=== PATIENT | female | born 1975 | race Caucasian/White ===

== ENCOUNTER → 2017-07-10 | Outpatient (REF) | payer BC ==
[2017-07-15 08:06] LABS: APTT 22.8 sec (.); Anticardiolipin Ab, IgA <10 APL (.); DRVTT Screen Seconds 40.4 sec (.)
[2017-07-20 08:14] LABS: HEPTACARBOXYLPORPHYRIN URINE 1 ug/L (0-2); HEXACARBOXYLPORPHYRIN URINE <1 ug/L (0-1); PENTACARBOXYLPORPHYRIN URINE <1 ug/L (0-2); PORPHOBILINOGEN RANDOM URINE 0.4 mg/L (0.0-2.0); PORPHYRIN TOTAL PLASMA <0.1 ug/dL (0.0-1.0); UROPORPHYRIN URINE 1 ug/L (0-20)
== END ==
LOC: M LAB REF 12:35
PROVIDERS: ATTEND Internal Medicine Medical Oncology
DX: D89.0 Polyclonal hypergammaglobulinemia (principal); Z86.718 Personal history of other venous thrombosis and embolism

== ENCOUNTER → 2017-08-30 | Outpatient (REF) | payer BC ==
[2017-08-30 11:30] LABS: IMMUNOGLOBULIN G 981 MG/DL (681-1648); IMMUNOGLOBULIN M 280 MG/DL (40-230); TOTAL PROTEIN 7.5 GM/DL (6.4-8.2)
[2017-08-31 12:26] LABS: ALBUMIN 4.35 GM/DL (3.29-5.55); GAMMA GLOBULIN % 15.1 % (11.1-18.8)
== END ==
LOC: M LAB REF 10:42
PROVIDERS: ATTEND Internal Medicine Medical Oncology
DX: D89.0 Polyclonal hypergammaglobulinemia (principal)

== ENCOUNTER → 2017-10-09 | Outpatient (REF) | payer BC ==
[2017-10-09 14:07] LABS: FREE T4 1.04 NG/DL (0.76-1.46); RHEUMATOID FACTOR QUANT < 10.0 IU/ML (0-15.0)
[2017-10-10 14:14] LABS: ANTI CENTROMERE ANTIBODY <0.2 AI (0.0-0.9); ANTINUCLEAR ANTIBODIES DIRECT Negative (Negative); SJOGREN'S ANTI SS-A <0.2 AI (0.0-0.9); SJOGREN'S ANTI SS-B <0.2 AI (0.0-0.9)
== END ==
LOC: M LAB REF 13:13
DX: D89.0 Polyclonal hypergammaglobulinemia (principal)

== ENCOUNTER → 2018-08-06 | Outpatient (CLI) | payer BC | LOC: M LRY 09:27 | DX: M17.0 Bilateral primary osteoarthritis of knee (principal); M35.9 Systemic involvement of connective tissue, unspecified; G89.4 Chronic pain syndrome | CPT/HCPCS: 71046 ==

== ENCOUNTER → 2018-08-06 | Outpatient (REF) | payer BC ==
[2018-08-06 11:52] LABS: APPEARANCE, URINE CLEAR (CLEAR); BACTERIA, URINE AUTO NEGATIVE (NEGATIVE); BILIRUBIN, URINE AUTO NEGATIVE (NEGATIVE); BLOOD, URINE BLOOD NEGATIVE (NEGATIVE); COLOR, URINE YELLOW (YELLOW); GLUCOSE, URINE (UA) AUTO NEGATIVE (NEGATIVE); KETONE, URINE AUTO NEGATIVE (NEGATIVE); LEUKOCYTE ESTERASE, URINE AUTO NEGATIVE (NEGATIVE); MUCUS, URINE LARGE (NEGATIVE); NITRITE, URINE AUTO NEGATIVE (NEGATIVE); PROTEIN, URINE AUTO NEGATIVE (NEGATIVE); RBC, URINE AUTO 0 /HPF (0-3); SPECIFIC GRAVITY URINE AUTO 1.028 (1.002-1.035); SQUAMOUS EPITHELIAL CELL UR AU 2 /HPF (0-6); UROBILINOGEN, URINE AUTO 0.2 mg/dL (0.0-2.0); WBC, URINE AUTO 2 /HPF (0-3)
[2018-08-06 11:54] LABS: BASO # 0.1 10^3/uL (0.0-0.2); BASO % 1.4 % (0.0-1.0); EOS # 0.1 10^3/uL (0.0-0.50); EOS % 2.5 % (0.0-3.0); HEMATOCRIT 42.6 % (36.0-47.0); HEMOGLOBIN 14.2 g/dl (12.0-15.5); IMMATURE GRANULOCYTE % 0.5 % (0-3.0); LYMPH # 1.3 10^3/uL (1.5-4.5); LYMPH % 30.1 % (24.0-44.0); MEAN CORPUSCULAR HEMOGLOBIN 30.3 pg (27.0-33.0); MEAN CORPUSCULAR HGB CONC 33.3 g/dl (32.0-36.5); MONO # 0.4 10^3/uL (0.0-0.8); MONO % 9.3 % (0.0-5.0); NEUTROPHILS # 2.5 10^3/uL (1.8-7.7); NEUTROPHILS % 56.2 % (36.0-66.0); PLATELET COUNT, AUTOMATED 210 10^3/uL (150-450); RED BLOOD COUNT 4.68 10^6/uL (4.00-5.40); RED CELL DISTRIBUTION WIDTH 12.7 % (11.5-14.5); WHITE BLOOD COUNT 4.4 10^3/uL (4.0-10.0)
[2018-08-06 12:21] LABS: ERYTHROCYTE SEDIMENTATION RATE 20 mm/hr (0-20)
[2018-08-06 12:32] LABS: TOTAL PROTEIN,RANDOM URINE < 5.0 MG/DL (0.0-12.0)
[2018-08-06 12:43] LABS: ALBUMIN 3.8 GM/DL (3.2-5.2); ALBUMIN/GLOBULIN RATIO 1.12 (1.00-1.93); ALKALINE PHOSPHATASE 41 U/L (45-117); ALT/SGPT 20 U/L (12-78); ANION GAP 8 MEQ/L (8-16); AST/SGOT 16 U/L (7-37); BILIRUBIN,TOTAL 0.6 MG/DL (0.2-1.0); BLOOD UREA NITROGEN 10 MG/DL (7-18); CALCIUM LEVEL 8.4 MG/DL (8.5-10.1); CARBON DIOXIDE LEVEL 26 MEQ/L (21-32); CHLORIDE LEVEL 105 MEQ/L (98-107); CREATININE FOR GFR 0.76 MG/DL (0.55-1.30); GLOMERULAR FILTRATION RATE > 60.0 (>58); GLUCOSE, FASTING 83 MG/DL (70-100); RHEUMATOID FACTOR QUANT < 10.0 IU/ML (<15.0); SODIUM LEVEL 139 MEQ/L (136-145); THYROID STIMULATING HORMONE 0.894 uIU/ML (0.358-3.740); TOTAL PROTEIN 7.2 GM/DL (6.4-8.2)
[2018-08-07 10:14] LABS: DRVV SCREEN 41.8 SEC
[2018-08-09 00:42] LABS: CYCLIC CITRULLINATED PEPTIDE 7 units (0-19)
[2018-08-09 00:42] LABS: ANA (HEP2) Negative (.); ANTI DOUBLE STRAND-DNA AB 1 IU/mL (0-9); BETA-2 GLYCOPROTEIN I ABY IGA <9 (0-25); BETA-2 GLYCOPROTEIN I ABY IGG <9 (0-20); BETA-2 GLYCOPROTEIN I ABY IGM <9 (0-32); CARDIOLIPIN IGA ANTIBODY <9 APL U/mL (0-11); CARDIOLIPIN IGG ANTIBODY <9 GPL U/mL (0-14); CARDIOLIPIN IGM ANTIBODY 21 MPL U/mL (0-12); RNP ANTIBODY 0.6 AI (0.0-0.9); SMITHS ANTIBODY < 0.2 AI (0.0-0.9); SSA SJOGRENS A <0.2 AI (0.0-0.9); SSB SJOGRENS B <0.2 AI (0.0-0.9)
== END ==
LOC: M SFHCLERA 09:14
DX: M35.9 Systemic involvement of connective tissue, unspecified (principal)
CPT/HCPCS: 84443